=== PATIENT | male | born 1970 | race Caucasian/White ===

== ENCOUNTER 2018-09-08 20:54 | Emergency (ER) | payer OTHER ==
[~2018-09-08] VITALS: Ht 180.3 cm; Wt 104.6 kg
[2018-09-08 21:05] VITALS: BP 148/93
[2018-09-08] MEDS ORDERED: ATEN100T PO (21:14)
--- NOTE | 2018-09-08 21:44 | NUR ---
FIRST CONTACT WITH PT. PRESENT TO TRIAGE WITH FRIENDS C/O SUICIDAL IDEATION WITH PLAN. STATES " I JUST WANT TO STEP ON A TRAFFIC AND GET OVER WITH " ." I AM LONELY ". RECOVERING ALCOHOLIC. REPLASED, STARTED DRINKING AGAIN 2 DAYS AGO. + ETOH. PT'S AOX4. RESPS EVEN AND UNLABORED. AWAITING ORDERES. ROOM SECURE. SITTER MONITORING FROM HALLWAY FOR SAFETY.
--- NOTE | 2018-09-08 22:08 | NUR ---
URINAL AT BEDSIDE.
[2018-09-08 22:21] LABS: BASOPHILS # (AUTO) 0.16 x10^3/uL (0-0.1); BASOPHILS % (AUTO) 2 % (0-1); EOSINOPHILS # (AUTO) 0.34 x10^3/uL (0-0.4); EOSINOPHILS % (AUTO) 4 % (1-7); LYMPHOCYTES # (AUTO) 3.22 x10^3/uL (1-3.4); LYMPHOCYTES % (AUTO) 35 % (22-44); MD NO; MEAN CORPUSCULAR HEMOGLOBIN 30.8 pg (27.5-34.5); MEAN CORPUSCULAR HGB CONC 34.7 g/dL (33.2-36.2); MEAN CORPUSCULAR VOLUME 88.9 fL (81-97); MEAN PLATELET VOLUME 7.2 fL (7.4-10.4); MONOCYTES % (AUTO) 10 % (2-9); NEUTROPHILS # (AUTO) 4.59 x10^3/uL (1.8-6.8); NEUTROPHILS % (AUTO) 50 % (42-75); PLATELET COUNT 275 x10^3/uL (130-400); RED BLOOD COUNT 4.66 x10^6/uL (4.38-5.82)
[2018-09-08 22:33] LABS: ALANINE AMINOTRANSFERASE 26 U/L (12-78); ALBUMIN 3.6 g/dL (3.4-5.0); ANION GAP 10 mmol/L (5-15); CALCIUM 8.2 mg/dL (8.5-10.1); CHLORIDE 108 mmol/L (98-107); CREATININE 0.95 mg/dL (0.7-1.3); SALICYLATE LEVEL 3.6 mg/dL (2.8-20.0)
[2018-09-08 22:35] LABS: ALKALINE PHOSPHATASE 57 U/L (45-117); BILIRUBIN,TOTAL 0.2 mg/dL (0.2-1.0); TOTAL PROTEIN 6.9 g/dL (6.4-8.2)
--- NOTE | 2018-09-08 23:00 | NUR ---
PT SLEEPING IN [place]. RESPS EVEN AND UNLABORED. ROOM REMAINS SECURE. SITTER MONITORING FROM HALLWAY FOR SAFETY. PT IS STILL NOT ABLE TO PROVIDE URINE SAMPLE.
--- NOTE | 2018-09-09 02:15 | NUR ---
pt provided urine sample at this time. ua sent.
[2018-09-09 02:37] LABS: AMPHETAMINE SCREEN, URINE Negative (Negative); BARBITURATE SCREEN, URINE Negative (Negative); BENZODIAZEPINE SCREEN, URINE Negative (Negative); CANNABINOID SCREEN, URINE Negative (Negative); COCAINE SCREEN, URINE Negative (Negative); METHADONE SCREEN, URINE Negative (Negative); OPIATE SCREEN, URINE Negative (Negative)
--- NOTE | 2018-09-09 03:42 | NUR ---
pt resting in [facility]. pt's aox4. resps even and unlabored. sitter monitoring from hallway for safety. room remains secure.
--- NOTE | 2018-09-09 05:08 | NUR ---
pt given dc instructions. pt's aox4. resps even and unlabored. no acute distress at dc. denies si/hi at dc.
== END 2018-09-09 05:09 | disposition home or self-care (01) ==
LOC: ED 09-09 00:13
DX: F32.0 Major depressive disorder, single episode, mild (principal); F15.10 Other stimulant abuse, uncomplicated; F17.200 Nicotine dependence, unspecified, uncomplicated; I48.91 Unspecified atrial fibrillation; Z72.9 Problem related to lifestyle, unspecified
CPT/HCPCS: 36415; 80053; 80307; 85025; 99284